=== PATIENT | female | born 1980 | race Caucasian/White ===

== ENCOUNTER 2021-04-07 15:51 | Outpatient (REF) | payer OTHER, SELFPAY ==
[2021-04-08 09:23] LABS: HBS Num1 0.01 mIU/mL (0-7.99); ~Hepatitis B Surface Antibody NONREACTIVE (Nonreactive)
[2021-04-08 13:16] LABS: Rubella IgG Antibody 3.28 Index; Rubeola IgG (Measles) <13.50 AU/mL
[2021-04-10 14:32] LABS: TS Negative Control Passed; TS Panel A 0; TS Panel B 0; TS Positive Control Passed; TSpotTB Negative (SeeBelow)
== END 2021-04-07 15:52 | disposition home or self-care (01) ==
LOC: HO.LNP 15:51
PROVIDERS: Visit Provider Physician Assistant Medical
DX: Z02.1 Encounter for pre-employment examination (principal)
CPT/HCPCS: 86481; 86706; 86735; 86762; 86765; 86787